=== PATIENT | female | born 1970 | race Caucasian/White ===

== ENCOUNTER 2025-03-15 08:39 | Outpatient (CLI) | payer BC, SELFPAY ==
--- NOTE | ~2025-03-15 | CT_ITS ---
CT Scan of the Chest without Contrast: Clinical Indication: Lung cancer screening, nicotine dependence Technique: Contiguous sections were acquired throughout the chest without intravenous contrast. Dose reduction technique was used on this scan by utilizing automated exposure control and iterative recon struction technique. The dose-length product (DLP) was 66.48 mGy-cm. Findings: There is no evidence of any significant mediastinal, hilar or axillary lymphadenopathy. The mediastin al soft tissues appear normal. There is no evidence of pleural or pericardial effusion. 6 mm groundglass nodule noted at the right lung apex (axial image 24). Images through the upper abdomen reveal no abnormalities. Impression: Lung RADS 2: Benign appearance. 12 month follow-up screening CT advised. Reviewed, dictated and finalized at location . Impression: Lung RADS 2: Benign appearance. 12 month follow-up screening CT advised.
--- OUTSIDE RECORDS SUMMARY | 2025-03-15 08:41 | XMS_ITS | Encounter Summary ---
Author Organization [facility] Address 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
--- OUTSIDE RECORDS SUMMARY | 2025-03-15 08:41 | XMS_ITS | Referral Summary ---
Author Organization [facility] Address [address] [place] [address] Care Team Providers Care Sausage Cooker Name Role Phone Toshia Santiago MD Primary Care Provider + Allergies Active Allergy Reactions Criticality Noted Date Comments Codeine Hallucinations,Menta l status changes,Other (See comments) High 08/20/1987 hallucinations Mold Itching,Sneezing,Wheezing Medium 10/20/1989 Medications budesonide-formo teroL (SYMBICORT) 160-4.5 mcg/actuation inhaler USE 1 TO 2 INHALATIONS ORALLY EVERY 4 HOURS NEEDED FOR SHORTNESS OF BREATH OR COUGH 1 Active mecobalamin (B12 ACTIVE ORAL) 9 Active sodium chloride-sodium bicarbonate (NEILMED SINUS RINSE, AYR) packet with rinse device 1 Active estrogens, conjugated, (PREMARIN) vaginal cream Insert 0.5 g into the vagina 2 (two) times a week 0 Active cholecalciferol (cholecalciferol ) 400 unit capsule Vitamin D3 1000iu daily Active cetirizine (ZyrTEC) 10 mg tablet Take 1 tablet by mouth daily as needed 0 Active buPROPion (WELLBUTRIN) 75 mg tablet Take 75 mg by mouth 2 (two) times a day 1 Active ibuprofen (ibuprofen) 200 mg tab/cap Take by mouth every 6 (six) hours as needed for pain Active budesonide (Pulmicort) 0.5 mg/2 mL nebulizer solutionIndicati ons:Sinusitis Administer 2 mL (0.5 mg total) into each nostril 2 (two) times a day 120 mL 11 Active Active Problems Problem Noted Date Diagnosed Date Anosmia 02/01/2021 Social History Tobacco Use Types Packs/Day Years Used Date Smoking Tobacco: Former Cigarettes Q uit: 2015 Smokeless Tobacco: Never AUDIT-C Answer Date Recorded Q1: How often do you have a drink containing alc ohol? Patient declined 02/01/2021 Q2: How many drinks containi ng alcohol do you have on a typical day when you are drinking? Patient declined 02/01/2021 Q3: How often do you have si x or more drinks on one occasion? 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
--- OUTSIDE RECORDS SUMMARY | 2025-03-15 08:41 | XMS_ITS | Encounter Summary ---
Author Organization [facility] Address [address] [place] [address] Care Team Providers Care Core Feeder Name Role Phone Toshia Santiago MD Primary Care Provider + Encounter Details Date Type Department Care Team (Late st Contact Info) Description 05/14/2004 Outpatient Historical [facility] Women's Health [address] [place] [address] Nadeem Cooper MD [address] [place] [address] Social History Tobacco Use Types Packs/Day Years Used Date Smoking Tobacco: Never Assessed Comments Unknown Sex and Gender Information Value Date Recorded Sex Assigned at Not on file 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
--- OUTSIDE RECORDS SUMMARY | 2025-03-15 08:41 | XMS_ITS | Clinical Summary ---
Author Organization [facility] Address [address] [place] [address] Care Team Providers Care Roll Forming Machine Set Up Operator Name Role Phone Toshia Santiago MD Primary [...] Problem Noted Date Diagnosed Date Anosmia 02/01/2021 Surgical History Surgery Date Site/Laterality Comments TRANSUMBILICAL AUGMENTATION MAMMAPLASTY BUNIONECTOMY SECTION VAGINA SURGERY BREAST SURGERY ORAL SURGERY Medical History Medical History Date Comments Allergic rhinitis Asthma Depression Sinusitis Fibromyalgia Family History Medical History Relation Name Comments Cancer Father Relation Name Status Comments Father Social History Tobacco Use Types Packs/Day Years [...] on file Legal Sex Female 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
--- OUTSIDE RECORDS SUMMARY | 2025-03-15 08:41 | XMS_ITS | Encounter Summary ---
Author Organization [facility] Address 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 Gender Identity Not on file Sexual Orientation Not on file documented as of this encounter Plan of Treatment Not on file documented as of this encounter Procedures Procedure Name Priority Date/Time Associated Diagnosis Comments CBC WITH DIFFERENTIAL Routine 07/15/2005 12:30 PM CDT CBC WITH DIFFERENTIAL Routine 07/15/2005 12:30 PM CDT ESTRADIOL Routine 07/15/2005 12:30 PM CDT TSH Routine 07/15/2005 12:30 PM CDT LUTEINIZING HORMONE Routine 07/15/2005 1 2:30 PM CDT FSH Routine 07/15/2005 12:30 PM CDT COMPREHENSIVE METABOLIC PANEL Routine 07/15/2005 12:30 PM CDT documented in this encounter Results * COMPREHENSIVE METABOLIC PANEL (07/15/2005 12:30 PM CDT) GLUCOSE 84 65 - 109 mg/dL INTERFACE SYSTEM CREATININE 0.7 0.4 - 1.2 mg/dL INTERFACE SYSTEM CALCIUM 9.3 8.6 - 10.2 mg/dL INTERFACE SYSTEM AST 26 12 - 32 U/L INTERFACE SYSTEM ALKALINE PHOSPHATASE 50 35 - 104 U/L INTERFACE SYSTEM BILIRUBIN TOTAL 0.4 0.2 - 1.0 mg/dL INTERFACE SYSTEM ALBUMIN 4.3 3.4 - 4.8 g/dL INTERFACE SYSTEM TOTAL PROTEIN 7.4 6.0 - 8.3 g/dL INTERFACE SYSTEM ALT 18 0 - 31 U/L INTERFACE SYSTEM BUN 17 6 - 20 mg/dL INTERFACE SYSTEM SODIUM 137 135 - 145 mmol/L INTERFACE SYSTEM POTASSIUM 4.0 3.5 - 4.9 mmol/L INTERFACE SYSTEM CHLORIDE 104 96 - 108 mmol/L INTERFACE SYSTEM CO2 27 22 - 30 mmol/L INTERFACE SYSTEM 07/15/2005 12:3 0 PM CDT us Nadeem Cooper MD CHEMISTRY ORDERABLES Final Resu lt INTERFACE SYSTEM Refer to clinic/hospital department * CBC WITH DIFFERENTIAL (07/15/2005 12:30 PM CDT) Pathologist [facility] NEUTROPHILS 65 45 - 70 % INTERFAC E SYSTEM LYMPHOCYTES 28 16 - 45 % INTERFAC E SYSTEM MONOCYTES 6 3 - 13 % INTERFACE SYSTEM EOSINOPHILS 1 0 - 7 % INTERFAC E SYSTEM BASOPHILS 0 0 - 2 % INTERFACE SYSTEM NEUTROPHIL ABSOLUTE 3.79 1.90 - 7.00 K/uL INTERFACE SYSTEM LYMPHOCYTE ABSOLUTE 1.63 0.70 - 4.50 K/uL INTERFACE SYSTEM MONOCYTE ABSOLUTE 0.37 0.10 - 1.30 K/uL INTERFACE SYSTEM EOSINOPHIL ABSOLUTE 0.03 0.00 - 0.70 K/uL INTERFACE SYSTEM BASOPHILS ABSOLUTE 0.01 0.00 - 0.20 K/uL INTERFACE SYSTEM 07/15/2005 12:3 0 PM CDT Nadeem Cooper MD HEMATOLOGY ORDERABLES Final Res ult Performing Organization Address [facility]/ZIP Co de Phone Number INTERFACE SYSTEM Refer to clinic/hospital department * CBC WITH DIFFERENTIAL (07/15/2005 12:30 PM CDT) WBC 5.8 4.0 - 9.8 K/uL INTERFACE SYSTEM RBC 4.33 3.90 - 4.90 M/uL INTERFACE SYSTEM HEMOGLOBIN 12.9 11.8 - 14.8 g/dL INTERFACE SYSTEM HEMATOCRIT 37.9 35.5 - 44.0 % INTERFACE SYSTEM MCV 87.5 82.0 - 99.0 fL INTERFACE SYSTEM MCH 29.8 27.2 - 32.6 pg INTERFACE SYSTEM MCHC 34.0 31.5 - 35.5 % INTERFACE SYSTEM RDW 12.4 11.5 - 14.5 % INTERFACE SYSTEM RDW-STDEV 40.0 37.1 - 48.7 fL INTERFACE SYSTEM PLATELETS 208 140 - 350 K/uL INTERFACE SYSTEM MPV 10.5 9.3 - 12.4 fL INTERFACE SYSTEM 07/15/2005 12:3 0 PM CDT Nadeem Cooper MD HEMATOLOGY ORDERABLES Final Res ult Performing Organization Address [facility] Phone Number INTERFACE SYSTEM Refer to clinic/hospital department * TSH (07/15/2005 12:30 PM CDT) TSH 1.78 0.27 - 4.20 uU/mL INTERFACE SYSTEM 07/15/2005 12:3 0 PM CDT Nadeem Cooper MD CHEMISTRY ORDERABLES Final Resu lt Performing Organization Address [facility]/ZIP Co de Phone Number INTERFACE SYSTEM Refer to clinic/hospital department * LUTEINIZING HORMONE (07/15/2005 12:30 PM CDT) LUTEINIZING HORMONE 7.5 mIU/mL INTERFACE SYSTEM Comment: Luteinizing Hormone Reference Range: Female: Normally Menstruating Female Follicular Phase 2.4 - 12.6 mIU/mL Ovulation Phase 14.0 - 95.6 mIU/mL Luteal Phase 1.0 - 11.4 mIU/mL Post Menopausal 7.7 - 58.5 mIU/mL Children less than 1 year old: Call laboratory for reference range. 07/15/2005 12:3 0 PM CDT Nadeem Cooper MD CHEMISTRY ORDERABLES Final Resu lt Performing Organization Address [facility] Phone Number INTERFACE SYSTEM Refer to clinic/hospital department * FSH (07/15/2005 12:30 PM CDT) FSH 5.0 mIU/mL INTERFACE SYSTEM Comment: FSH Reference Range: Female: Normally Menstruating Female Follicular Phase 3.5 - 12.5 mIU/mL Ovulation Phase 4.7 - 21.5 mIU/mL Luteal Phase 1.7 - 7.7 mIU/mL Post Menopausal 25.8 - 134.8 mIU/mL Children less than 1 year old: Call laboratory for reference range. 07/15/2005 12:3 0 PM CDT Nadeem Cooper MD CHEMISTRY ORDERABLES Final Resu lt Performing Organization Address [facility] Phone Number INTERFACE SYSTEM Refer to clinic/hospital department * ESTRADIOL (07/15/2005 12:30 PM CDT) ESTRADIOL 98 pg/mL INTERFACE SYSTEM Comment: Estradiol Reference Range: Female: Normally Menstruating Female Follicular Phase: 13 - 166 pg/ml Ovulation Phase: 86 - 498 pg/mL Luteal Phase: 44 - 211 pg/mL Post Menopausal: <5 - 55 pg/mL 1st Trimester: 215 - >4300 pg/mL Children less than 1 year old: No Reference Range established. 07/15/2005 12:3 0 PM CDT Nadeem Cooper MD CHEMISTRY ORDERABLES Final Resu lt Performing Organization Address [facility] Phone Number INTERFACE SYSTEM Refer to clinic/hospital department documented in this encounter Visit Diagnoses Diagnosis Symptomatic menopausal or female climacteric states- Primary documented in this encounter Care Teams Middleware Administrator Relationship Specialty Start Date End Date Toshia Santiago MD [address] [place] [address] PCP - General Internal Medicine 02/04/20 documented as of this encounter
--- OUTSIDE RECORDS SUMMARY | 2025-03-15 08:41 | XMS_ITS | Encounter Summary ---
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
--- OUTSIDE RECORDS SUMMARY | 2025-03-15 08:41 | XMS_ITS | Clinical Summary ---
Author Organization [facility] Care Team Providers Care Diesel Mechanic Construction Name Role Phone Unavailable Primary Care Provider Unavailabl e Social History Tobacco Use Types Packs/Day Years Used Date Smoking Tobacco: Never Assessed Comments Unknown Sex and Gender Information Value Date Recorded Sex Assigned at Not on file Legal Sex Female 8:09 AM CDT Gender Identity Not on file Sexual Orientation Not on file Plan of Treatment Health Maintenance Due Date Last Done Comments Hepatitis C Virus (HCV) Screening 1970 TdaP Immunization 1970 Hepatitis B Immunization (1 of 3 - 19+ 3-dose series) 1989 Pap Smear 1991 Cervical Cancer Screening (CCS) 02/01/2000 HPV/Cotest 02/01/2000 Colonoscopy 2015 Colorectal Cancer Screening 2015 Cologuard 02/01/2020 Immunochemical Fecal Occult Blood 02/01/2020 Mammogram 02/01/2020 Pneumococcal Immunization (5 0+ years) (1 of 1 - PCV) 02/01/2020 Influenza Immunization (#1) 2024 09/0 02/2020, 06/27/2019, 06/19/2018 SARS-COV-2 Immunization ( - 2023- season) 2024 11/28/2020, 11/07/2020 Respiratory Syncytial Virus (RSV) Immunization (Adult) (1 - 1-dose 75+ series) 2045 Zoster Immunization Completed 10/09/2020, 07/07/2020 Meningococcal Immunization (ACWY) Aged Out No longer eligible b ased on patient's age to complete this topic Pneumococcal Immunization Combined Aged Out No longer eligible b ased on patient's age to complete this topic Rotavirus Immunization Aged Out No lo nger eligible based on patient's age to complete this topic
--- OUTSIDE RECORDS SUMMARY | 2025-03-15 08:41 | XMS_ITS | Clinical Summary ---
Author Organization [facility] Address [address] [place] [address] Care Team Providers Care Phys Assistant Name Role Phone Toshia Santiago MD Primary Care Provider + Allergies Active Allergy Reactions Criticality Noted Date Comments Codeine Hallucination Low 08/30/2008 Mold Itching Medium 05/04/2015 Medications Cyanocobalamin-C obamamide 5,000-100 mcg Tablet, Sublingual Place 5,000 mcg under tongue daily. Active Cholecalciferol, Vitamin D3, (Vitamin D3) 10 mcg (400 unit) capsule Vitamin D3 1000iu daily Active conjugated estrogens (Premarin) 0.625 mg/gram vaginal cream Insert 0.5 Grams vaginally twice weekly. 30 Gram 06/23/20 20 Active terbinafine HCL (LamISIL) 250 mg tabletIndication s:Onychomycosis of toenail TAKE 1 TABLET (250 MG) BY MOUTH DAILY. 30 Tablet 2 01/05/20 22 Active buPROPion (WELLBUTRIN) 75 mg tabletIndication s:Mild episode of recurrent major depressive disorder TAKE 1 TABLET BY MOUTH TWICE A DAY 60 Tablet 3 01/05/20 22 Active fluconazole (DIFLUCAN) 150 mg tablet Take 1 Tablet (150 mg) by mouth see administration instructions. Take 1 tab today and repeat another tablet in 72 hrs if no relief. 2 Tablet 03/11/20 22 Active cetirizine (ZyrTEC) 10 mg tablet Take 1 Tablet by mouth. 06/19/20 20 Active budesonide-formo teroL (SYMBICORT) 160-4.5 mcg/actuation HFA Aerosol InhalerIndicatio ns:Mild intermittent asthma without complication INHALE 1 TO 2 PUFFS BY MOUTH EVERY 4 HOURS NEEDED FOR SHORTNESS OF BREATH RINSE MOUTH AFTER USE 11 Gram 11 08/04/20 23 Active fexofenadine (BERNARDO) 180 mg tablet Take 180 mg by mouth daily. allergies Active valACYclovir (Valtrex) 500 mg tablet Take 1 Tablet (500 mg) by mouth daily. 30 Tablet 2 03/17/20 24 Active propranoloL (INDERAL) 40 mg tablet Take 1 Tablet (40 mg) by mouth 1 time daily as needed for Other (See Comment) (Public speaking). Take 1 hour prior to public speaking 10 Tablet 4 10/05/20 24 Active albuterol sulfate HFA 90 mcg/actuation aerosol inhaler Take 2 Puffs by inhalation 1 time daily as needed for Shortness of Breath (Before exercise). 8.5 Gram 3 10/05/20 24 Active mometasone-formo terol (Dulera) 100-5 mcg/actuation inhalerIndicatio ns:Mild intermittent asthma without complication Take 2 Puffs by inhalation 2 times daily. 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 Encounter for routine laboratory testing 016 Fibromyalgia 10/04/2016 Overview (10/04/2016): No meds, manages with exercise and nutrition s/p HTA ablation 12/0812/08/2015 Genital herpes 12/29/2012 Dysplasia of cervix 12/29/2012 Menorrhagia 04/29/2011 Female stress incontinence 04/29/2011 Encounters Date Type Department Care Team Description 03/11/2025 External Device Data [facility]CTION Provider, Abstract 03/09/2025 External Device Data [facility] Provider, Abstract 03/08/2025 External Device Data [facility] Provider, Abstract 01/28/2025 [facility] Internal Medicine - [address] [address] Loretta Perez FNP 01/18/2025 External Device Data [facility] Provider, Abstract 12/28/2024 [facility] Internal Medicine [address] [address] Loretta Perez FNP 12/21/2024 External Device Data [facility] Provider, Abstract from Last 3 Months Immunizations Immunization Administration Dates Next Due (ADACEL/BOOSTRIX)(10 YR UP) TDAP VACCINE, 0.5ML, IM 01/30/2025,08/10/2015 (COMIRNATY)(12 YR UP) COVID- 19 VACCINE, MRNA, SPIKE PROTEIN, LNP, ARMAAN(PF) 30 MCG/0.3 ML IM SUSP 08/06/2024 (M-M-R II/PRIORIX)(12 MO UP) MEASLES, MUMPS AND RUBELLA VIRUS VACCINE, 0.5 ML IM/SUBCUT 06/23/2018,02/02/2008 (PFIZER)(12 YR UP) COVID-19 VACCINE - EMERGENCY USE AUTHORIZATION, MRNA, [id number](PF) 30 MCG/0.3 ML IM SUSP 08/23/2021,11/28/2020,11/07/2020 (PNEUMOVAX 23)(50 YRS UP) PN EUMOCOCCAL POLYSACCHARIDE (PPV23) 0.5 ML, IM 10/08/2021 (Pfizer Bivalent)(12 Yr Up) COVID-19 Vaccine - Emergency Use Authorization, MRNA, Lnp-S(Pf) 30 Mcg/0.3 Ml Susp 07/26/2022 (SHINGRIX)(50 YRS UP) ZOSTER VACCINE RECOMBINANT, 0.5 ML, IM 07/07/2020,05/05/2020 (TDVAX)(7 YRS UP) TETANUS AN D DIPHTHERIA TOXOIDS, ADSORBED (2 LF OF TETANUS TOXOID AND 2 LF OF DIPHTHERIA TOXOID), 0.5ML (PF), IM 02/02/2008 Hepatitis B Vaccine 05/26/2007 INFLUENZA VACCINE QUADRIVALE NT 3 YR UP PF IM 06/24/2020 INFLUENZA VACCINE QUADRIVALE NT 6 MOS UP PF IM 06/19/2018 INFLUENZA VACCINE TRIVALENT SPLIT VIRUS, (6 MOS UP), 0.5ML (PF), IM 08/06/2024 Influenza Seasonal Unspecifi ed Formulation IM 07/31/2023,07/23/2022,08/18/2021,06/27,07/20/2018,06/19/2018 Influenza Vaccine Tri Split 4+ Im 08/10/2015 Meningococcal A Conjugate Vaccine IM 02/02/2008 Family History Medical History Relation Name Comments Healthy Daughter 2 Cancer Father Ra Mckeon skin cancer that turned into lung cancer Lung Cancer Father Ra Mckeon Stroke Maternal Grandfather Usama Hagen Glaucoma Maternal Grandmother Healthy Maternal Grandmother Heart Failure Maternal Grandmother Macular Degen Maternal Grandmother High Cholesterol Mother Neeta Mckeon Hypertension Mother Neeta Mckeon Other Mother Neeta Mckeon Osteopenia Breast Cancer Paternal Aunt x4 unknown age 5 0? Cancer Paternal Grandfather Art Diekmann Thyroid Disease Sister 1 Oksana Cooper Hashimot os Healthy Sister 2 Healthy Son 3 Healthy Son 4 Healthy Son 5 Colon Cancer Neg Hx Fuchs' dystrophy Neg Hx Ovarian Cancer Neg Hx Strabismus Neg Hx Relation Name Status Comments Daughter 1 Alive Daughter 2 Daughter 3 Alive Father Ra Mckeon Alive Maternal Grandfather Usama Hagen Maternal Grandmother Mother Neeta Mckeon Alive Paternal Aunt x4 Alive Paternal Grandfather Art Mike Sister 1 Oksana Cooper Sister 2 Sister 3 Alive Son 1 Alive Son 2 Alive Son 3 Son 4 Son 5 Son 6 Alive Son 7 Alive Son 8 Alive Social History Tobacco Use Types Packs/Day Years Used Date Smoking Tobacco: Former Cigarettes 0.5 20 0 11/24/1994 - 11/24/2014 Smokeless Tobacco: Never Tobacco Cessation:Counseling Given: Not Answered Comments:Multiple stretches of recovery up to 5 years before final quit in 2015. Alcohol Use Standard Drinks/Week Comments Not Currently 0 (1 standard drink = 0.6 oz pur e alcohol) Feeling Safe Answer Date Recorded Are you in a relationship wi th someone who hurts you emotionally and/or physically? No 08/28/2023 Comments No Sex and Gender Information Value Date Recorded Sex Assigned at Not on file Legal Sex Female 5:24 AM WARP SPINNER Gender Identity Not on file Sexual Orientation Not on file Occupation Industry Job Start Date Job End Date Not on file Not on file Not on file Not on file Last Filed Vital Signs Vital Sign Reading Time Taken Comments Blood Pressure 105/74 08/28/2023 11:15 AM WARP SPINNER Pulse 68 08/28/2023 11:20 AM WARP SPINNER Temperature 36.4 C (97.6 F) 08/28/2023 10:56 AM WARP SPINNER Respiratory Rate 16 08/28/2023 11:20 AM WARP SPINNER Oxygen Saturation 97% 08/28/2023 11:20 AM WARP SPINNER Inhaled Oxygen Concentration - - Weight 67.6 kg (149 lb) 08/28/2023 9:51 AM WARP SPINNER Height 160 cm (5' 3 ) 08/28/2023 9:51 AM WARP SPINNER Body Mass Index 26.39 08/28/2023 9:51 AM WARP SPINNER Plan of Treatment Health Maintenance Due Date Last Done Comments HEPATITIS B VACCINES (1 of 3 - 19+ 3-dose series) 1989 05/26/2007 FIT-DNA Q 3 years 2015 FIT/FOBT Q 1 year 2015 Flex Sig/CT Colonography Q 5 years 2015 BREAST CANCER SCREENING 04/15/2025 04/15/20 24, 05/09/2023, 02/02/2022, Additional history exists HPV/Cotest (21-29) 06/23/2025 06/23/2020, 0 03/02/2019, 05/19/2018, Additional history exists HPV/Cotest (30-65) 06/23/2025 06/23/2020, 0 03/02/2019, 05/19/2018, Additional history exists CERVICAL CANCER SCREENING 07/16/2027 PAP SMEAR 07/16/2027 07/16/2024, 06/21, 06/23/2020, Additional history exists COLORECTAL SCREENING 10/02/2030 10/02/2020, 10/02/2020, 10/02/2020, Additional history exists Colorectal Cancer Screening 10/02/2030 DTAP/TDAP/TD VACCINES (3 - T d or Tdap) 01/30/2035 01/30/2025, 08/10/2015, 02/02/2008 ZOSTER VACCINE Completed 07/07/2020, 05/05/2020 COVID-19 Vaccine Completed 08/06/2024, 04/2022, 08/23/2021, Additional history exists INFLUENZA VACCINE Completed 08/06/2024, , 07/23/2022, Additional history exists Medical Devices Implanted Type Area Glass Tinter Device Identifier Shelf Expiration Date Model / Serial / Lot [employer]necare Tvt Tape [id number] - [id number] Implanted:Qty: 1 on 05/27/2019 by Jose Angel Burnett MD at [facility] N/A: Bladder [employer]- G[employer] 12/17/2020 [id number] / / [id number] Procedures Procedure Name Priority Date/Time Associated Diagnosis Comments MAMMO 3D DORIS DIAGNOSTIC BILAT W OR WO CAD Routine 04/15/2024 9:06 AM CDT Mass of left breast, unspecified quadrant Abnormal ultrasound of breast COLONOSCOPY REPORT 10/02/2020 8: 56 AM WARP SPINNER CERV/VAG CYTO AGE BASED SCREEN PAP Routine 06/23/2020 2:50 PM CDT Well woman exam with routine gynecological exam from Last 3 Months or Most Recently Relevant to Health Maintenance Results * (ABNORMAL) MAMMO 3D DORIS DIAGNOSTIC BILAT W OR WO CAD (04/15/2024 9:06 AM CDT) Anatomical Region Laterality Modality Breast Bilateral Mammography 04/15/2024 9:11 AM CDT Impressions 04/15/2024 9:44 AM CDT IMPRESSION: 9.6 x 8.3 x 3.3 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 Recommend short interval follow-up with a focused left breast ultrasound in six months. No mammographic evidence of malignancy in the right breast. Overall BI-RADS category: 3 (probable benign findings - recommend short interval follow-up). A letter will be sent to patient. Narrative 04/15/2024 9:44 AM CDT EXAM: MAMMO 3D DORIS DIAGNOSTIC BILAT W OR WO CAD STUDY DATE: 04/15/2024 9:06 AM CLINICAL INDICATION: 54 years old female presents for short interval follow-up of a probable fibroadenoma in the left breast and annual mammography of the right breast. COMPARISON: Prior mammograms, the most recent dated 05/09/2023 and breast ultrasound dated 05/19/2023, 07/22/2023 and 11/18/2023. PROCEDURE: CC and MLO standard and implant displaced digital mammographic views of the bilateral breasts are obtained. Additionally, 90 degree lateral view of the left breast was obtained. Computer Aided Detection (CAD) was utilized. Tomosynthesis was done with D nondisplaced views. FINDINGS: Breast Density: Scattered fibroglandular densities. Right breast: There is an intact right subpectoral breast implant. There are no spiculated masses, suspicious microcalcifications or areas of architectural distortion in the right breast. Left breast: There is an intact left subpectoral breast implant. There is a stable mass in the left inner breast at posterior depth There are no spiculated masses, suspicious microcalcifications or areas of architectural distortion in the left breast. Left breast ultrasound findings: There is a 9.6 x 8.3 x 3.3 mm oval-shaped hypoechogenic mass in the left breast at the 9:00 position 6 cm from the nipple, not significantly changed since 05/19/2023. The mass is wider than tall and demonstrates homogeneous internal echoes. The mass does not demonstrate any internal vascular flow. us Suzie Duvall MD MAMMO ORDERABLES Final Result * COLONOSCOPY REPORT (10/02/2020 8:56 AM WARP SPINNER) Narrative Procedure Note Carlos Gutierrez MD - 10/02/2020 8:55 AM CST [facility] Endoscopy Patient Name: Yolanda Yuen Procedure Date: 10/02/2020 Date of : 1970 Admit Type: Outpatient Attending MD: Carlos Gutierrez MD Procedure: Colonoscopy Indications: Screening for colorectal malignant neoplasm, This is the patient's first colonoscopy Providers: Carlos Gutierrez MD Referring MD: Toshia Santiago MD Complications: No immediate complications. Procedure: Informed consent was obtained for the procedure, including moderate sedation after risks were discussed. Based on the pre-procedure assessment, including review of the patient's medical history, medications, allergies, and review of systems, the patient was deemed to be an appropriate candidate for sedation. A timeout was performed. Continuous ECG monitoring, pulse oximetry, blood pressure monitoring, and direct observation were performed. The Colonoscope was introduced through the anus and advanced to the terminal ileum. The colonoscopy was performed without difficulty. The patient tolerated the procedure well. The quality of the bowel preparation was good. Estimated Blood Loss: Estimated blood loss: none. Findings: The digital rectal exam was normal. The terminal ileum appeared normal. Normal mucosa was found in the entire colon. The retroflexed view of the distal rectum and anal verge was normal and showed no anal or rectal abnormalities. Impression: - The examined portion of the ileum was normal. - Normal mucosa in the entire examined colon. - The distal rectum and anal verge are normal on retroflexion view. - No specimens collected. Recommendation: - Discharge patient to home. - Continue present medications. - Repeat colonoscopy in 10 years for screening purposes unless symptoms change or family history changes. Carlos Gutierrez MD 10/02/2020 8:55:32 AM This report has been signed electronically. Number of Addenda: [address]; [place] [address] Carlos Gutierrez MD GI PROCEDURE ORDERABLES Final Result * CERV/VAG CYTO AGE BASED SCREEN PAP (06/23/2020 2:50 PM CDT) COMMENT (PAP): SEE COMMENT 0 7:31 AM CDT [facility] Comment: This order for age-based cervical cancer and STI screening follows ACOG guidelines(PB 168, 140, [id number]). See individual assays for performing site location. CLINICAL INFORMATION Information not provided 06/29/2020 7:31 AM CDT [facility] LAST MENSTRUAL PERIOD INFORMATION NOT PROVIDED 06/29/2020 7:31 AM CDT [facility] PREV PAP: INFORMATION NOT PROVIDED 06/29/2020 7:31 AM CDT [facility] PREV BX: INFORMATION NOT PROVIDED 06/29/2020 7:31 AM CDT [facility] SOURCE Endocervix 06/29/2020 7:31 AM CDT [facility] ADEQUACY: SATISFACTORY FOR EVALUATION 06/29/2020 7:31 AM CDT [facility] PAP INTERP SEE COMMENT 06/29/2020 7:31 AM CDT [facility] Comment: Negative for intraepithelial lesion or malignancy. Atrophic pattern; predominantly parabasal cells COMMENT This Pap test has been evaluated with computer assisted technology. 06/29/2020 7:31 AM CDT [facility] HAND SALTER: SEE COMMENT 2019 7:31 AM CDT [facility] Comment: MMW, CT(ASCP) CT screening location: [place] [address] [address] [address] EXPLANATORY NOTE SEE COMMENT 020 7:31 AM CDT [facility] Comment: EXPLANATORY NOTE: The Pap is a screening test for cervical cancer. It is not a diagnostic test and is subject to false negative and false positive results. It is most reliable when a satisfactory sample, regularly obtained, is submitted with relevant clinical findings and history, and when the Pap result is evaluated along with historic and current clinical information. HPV E6/E7 Not Detected Not Detected 06/29/2020 7:31 AM CDT [facility] Comment: This test was performed using the APTIMA HPV Assay ([employer] This assay detects E6/E7 viral messenger RNA (mRNA) from 14 high-risk HPV types (16,18,31,33,35,39,45,51,52,56,58,59,66,68). The analytical performance characteristics of this assay have been determined by [facility]. The modifications have not been cleared or approved by the FDA. This assay has been validated pursuant to the CLIA regulations and is used for clinical purposes. Genital SWAB OF ENDOCERVIX / Unknown Collection / Unknown 06/23/2020 2:50 PM CDT 06/23/2020 6:36 PM CDT Narrative [facility] - 06/29/2020 7:31 AM CDT Performing Organization Information: Site ID: [id number] Name: [facility] Address: [address] [address] Director: Pa Martinez D.O., MPH Site ID: [id number] [facility]: [facility] Address: [address] [address] [address] Director: Rupal Rodriguez us Rachel Manjarrez NP PATHOLOGY/CYTOLOGY ORDERABLES Fi nal Result [facility] [phone] from Last 3 Months or Most Recently Relevant to Health Maintenance Insurance RX [employer] RX Member Subscriber Plan / Payer (Ef fective 2021-Present) Name:Yolanda Yuen Relation to Subscriber:Self Name:Yolanda Yuen Payer ID:Not on file Group ID:[id number] Type:RX Commercial Address: [address] [place] [facility] ACCESS CHOICE [facility] SCHEDit ACCESS CHOICE Advance Directives For more information, please contact: [phone] * Full Code (Latest Code Status on File) Date Activated Date Inactivated Comments 08/28/2023 10:29 AM 08/28/2023 1:36 PM * Full Code Date Activated Date Inactivated Comments 10/02/2020 7:30 AM 10/02/2020 11:42 AM * Full Code Date Activated Date Inactivated Comments 05/27/2019 7:57 AM 05/27/2019 12:43 PM * Full Code Date Activated Date Inactivated Comments 05/27/2019 5:53 AM 05/27/2019 7:57 AM * Full Code Date Activated Date Inactivated Comments 12/08/2015 8:02 AM 12/08/2015 3:09 PM Care Teams Phys Assistant Relationship Specialty Start Date End Date Toshia Santiago MD [address] [place] [address] PCP - General Internal Medicine 02/04/20
--- OUTSIDE RECORDS SUMMARY | 2025-03-15 08:41 | XMS_ITS | Encounter Summary ---
Author Organization [facility] Address [address] [place] [address] Care Team Providers Care Cardiac Specialist Name Role Phone Toshia Santiago MD Primary Care Provider + Encounter Details Date Type Department Care Team (Late st Contact Info) Description 07/19/2004 Outpatient Historical [facility] [address] [place] [address] Nadeem Cooper MD [address] [place] [address] Social History Tobacco Use Types Packs/Day Years Used Date Smoking Tobacco: Never Assessed Comments Unknown Sex and Gender Information Value Date Recorded Sex Assigned at Not on file Legal Sex Female 5:24 AM FINANCIAL SERVICES ASSISTANT Gender Identity Not on file Sexual Orientation Not on file documented as of this encounter Plan of Treatment Not on file documented as of this encounter Visit Diagnoses Not on filedocumented in this encounter Care Teams Cardiac Specialist Relationship Specialty Start Date End Date Toshia Santiago MD [address] [place] [address] PCP - General Internal Medicine 02/04/20 documented as of this encounter
== END 2025-03-15 08:40 | disposition home or self-care (01) ==
PROVIDERS: PCP Internal Medicine; Visit Provider Physician Assistant
DX: Z12.2 Encounter for screening for malignant neoplasm of respiratory organs (principal); Z87.891 Personal history of nicotine dependence; R91.1 Solitary pulmonary nodule
CPT/HCPCS: 71271